=== PATIENT | female | born 1995 | race Caucasian/White ===

== ENCOUNTER 2016-10-25 19:01 | Emergency (ER) | payer MEDICAID ==
--- NOTE | ~2016-10-25 | ER ---
PATIENT'S NAME: TONE MAGANA [facility] AGE: 21 Y [address] ROOM: [place] [address] LOCATION: ED ADMIT DATE: 10/25/2016 ER/Outpatient Report DISCHARGE DATE: 10/25/2016 FAMILY PHYSICIAN: Physician, Unknown ATTENDING PHYSICIAN: Berlin Leary Time of Arrival: 1859 hours. Time of Evaluation: 1859 hours. CHIEF COMPLAINT: Possible seizure. HISTORY OF PRESENT ILLNESS: The patient arrived per [facility] from the senior living. Tonight, she came out of her room stating that she needed help, fell to the ground, and started shaking. She says she hit her head. Witnesses at the senior living state that she did not hit her head. The patient states this is a reaction to the Haldol shots that she gets. She has been in senior living for the past month. She has not had a fever. She was not incontinent of urine or stool. ALLERGIES AND MEDICATIONS: On the chart and reviewed by me. She does get Haldol shot every 3 weeks, and her guardian reports that as a result of those Haldol injections, she does have tremors. They have tried other medicines, and they all cause the same problems. Guardian did call and stated that she is supposed to be on Benadryl daily to try and control some of the side effects of the Haldol, and the guardian will talk with the correction officer supervisor tomorrow regarding that. PAST MEDICAL HISTORY: Bipolar, impulsive control issues. PAST SURGICAL HISTORY: No surgery. REVIEW OF SYSTEMS: All negative other than those mentioned in the HPI. PHYSICAL EXAMINATION: VITAL SIGNS: She weighs 84.8 kg, blood pressure is 137/79, pulse of 105, respirations 16, temperature of 98.6, O2 saturation is 99% on room air. GENERAL: She is awake, alert, and oriented x4. SKIN: Her skin is pink, warm, and dry. RESPIRATIONS: Even and nonlabored. HEENT: Pupils are equal and reactive to light. TMs are pearly white. Nasal is clear. Oropharynx is clear. PATIENT'S NAME: TONE MAGANA [facility] AGE: 21 Y [address] ROOM: [place] [address] LOCATION: [facility] ADMIT DATE: 10/25/2016 ER/Outpatient Report DISCHARGE DATE: 10/25/2016 FAMILY PHYSICIAN: Physician, Unknown ATTENDING PHYSICIAN: Berlin Leary NECK: Supple. No lymphadenopathy. LUNGS: Lung sounds are clear throughout. HEART: Regular rate and rhythm. ABDOMEN: Soft and nondistended. Bowel sounds are present. EXTREMITIES: She moves all extremities. No peripheral edema noted. Positive peripheral pulses. She does have a fine tremor of her lower extremities noted. Able to stop when she thinks no one is watching her. EMERGENCY DEPARTMENT COURSE: The patient was given Benadryl 50 mg p.o. Lab work was drawn. CBC is within normal limits. Chem panel is within normal limits. Prolactin was 59.4. The patient's vital signs remained stable throughout the ER visit. Fine tremor of her legs continued, did not worsen. IMPRESSION: Seizure-like activity. PLAN: The patient is to return to the senior living. Monitor. Follow up as needed. [place] verbalized understanding. JACKELYN MEJIA APRN FOR MD MYNOR LYLE/scottyl /[id number] d: 10/26/16 0320 t: 10/28/16 1813, OUTPATIENT REPORT
[~2016-10-25 19:01] MED LIST changes: -BENADRYL25 MG PO; -HALOPERIDO100 MG/1 M PO; -INVEGA SUS156 MG/1 M IM; -REMERON15 MG PO
[2016-10-25 19:34] LABS: BASOPHIL # 0.1 K/uL (0.0-0.2); BASOPHIL % 0.7 %; EOSINOPHIL # 0.1 K/uL (0.0-0.5); EOSINOPHIL % 0.7 %; HEMATOCRIT 40.6 % (33.0-46.0); HEMOGLOBIN 13.4 g/dL (11.0-15.0); IMMATURE GRANULOCYTE % 0.2 %; LYMPHOCYTE # 2.4 K/uL (0.8-4.0); LYMPHOCYTE % 27.8 %; MCH 28.5 pg (27.0-34.0); MCV 86.4 fl (83.0-98.0); MONOCYTE # 0.5 K/uL (0.0-1.0); MONOCYTE % 5.3 %; MPV 10.3 fl (9.4-12.4); NEUTROPHIL # (ANC) 5.7 K/uL (1.8-7.8); NEUTROPHIL % 65.3 %; NRBC % 0 /100WBC (0-0.00); PLATELET COUNT 250 K/uL (150-450); WBC 8.7 K/uL (4.0-11.0)
[2016-10-25 19:50] LABS: ALBUMIN 4.3 gm/dL (3.5-5.0); ALK PHOS 74 IU/L (33-138); ALT 16 IU/L (12-78); BLOOD UREA NITROGEN 14 mg/dL (6-24); CALCIUM 9.5 mg/dL (8.5-10.5); CHLORIDE 108 mMol/L (96-110); CO2 26 mMol/L (22-32); CREATININE 0.7 mg/dL (0.5-1.1); ESTIMATED GFR (MDRD EQUATION) > 60; SODIUM 141 mMol/L (135-145); TOTAL PROTEIN 8.5 g/dL (6.0-8.4)
[2016-10-25 19:51] LABS: ANION GAP 11.1 (10.0-19.0); AST 12 IU/L (10-40); POTASSIUM 4.1 mMol/L (3.7-5.1); TOTAL BILIRUBIN 0.2 mg/dL (0.0-1.5)
[2016-12-21] MEDS ORDERED: INVEGA SUS156 MG/1 M IM (09:51)
[2016-12-21] MEDS ORDERED: REMERON15 MG PO (09:52)
[2016-12-21] MEDS ORDERED: BENADRYL25 MG PO (09:58)
[2016-12-22] MEDS ORDERED: HALOPERIDO100 MG/1 M PO (11:15)
[2016-12-22] MEDS ORDERED: BENADRYL25 MG PO (11:16)
== END 2016-10-25 20:10 | disposition disaster alternative care site (69) ==
LOC: GMED 19:01
PROVIDERS: Emergency Medicine
DX: R25.1 Tremor, unspecified (principal)

== ENCOUNTER → 2016-10-25 | Outpatient (CLI) | payer MEDICAID ==
[~2016-10-25] MED LIST: BENADRYL25 MG PO; CIPRO500 MG PO; COGENTIN1 MG PO; HALOPERIDO100 MG/1 M IM; HALOPERIDO100 MG/1 M PO; INVEGA SUS156 MG/1 M IM; NAPROSYN500 MG PO; REMERON15 MG PO; ZYRTEC10 MG PO
== END | disposition disaster alternative care site (69) ==
LOC: GAMB 18:43
DX: R25.1 Tremor, unspecified (principal); Z79.899 Other long term (current) drug therapy
CPT/HCPCS: A0425; A0429

== ENCOUNTER → 2016-10-26 | Emergency (ER) | payer MEDICAID ==
[~2016-10-26] MED LIST changes: +BENADRYL25 MG PO; +HALOPERIDO100 MG/1 M PO; +INVEGA SUS156 MG/1 M IM; +REMERON15 MG PO
== END | disposition disaster alternative care site (69) ==
LOC: GAMB 17:16
DX: R25.1 Tremor, unspecified (principal); R46.2 Strange and inexplicable behavior; R40.20 Unspecified coma

== ENCOUNTER 2016-12-17 19:45 | Emergency (ER) | payer MEDICAID ==
--- NOTE | ~2016-12-17 | ER ---
[facility] 21 [facility] [address] ROOM: [place] [address] LOCATION: ED ADMIT DATE: 12/17/2016 ER/Outpatient Report DISCHARGE DATE: 12/17/2016 FAMILY PHYSICIAN: Macy Stout MD ATTENDING PHYSICIAN: Berna Engle Time of Arrival: 1945 hours. Time Seen: 2017 hours. IDENTIFICATION: A 21-year-old female. CHIEF COMPLAINT: Ingestion of medication. HISTORY OF PRESENT ILLNESS: The patient took 15 prednisone tablets of unknown strength at 6:30 p.m. She was upset with some news about her boyfriend going to senior living and possibly half-way, so she took these medication. She is not sure if she was trying to harm herself. She denies any suicidal ideation. She does have a history of depression and she has a history of previous suicide gestures. Currently, she has no physical complaints. She has no nausea or vomiting and no other physical complaints at this time. ALLERGIES: TO CEPHALOSPORINS AND BACTRIM. CURRENT MEDICATIONS: 1. Invega. 2. Benadryl. 3. Anti-depressant. 4. Depo-Provera. MEDICAL PROBLEMS: Bipolar disorder, personality disorder type B, oppositional defiant disorder. PRIOR SURGERIES: Nasal surgery. SOCIAL HISTORY: The patient has a legal guardian, Sola Leach. Tobacco use, denies. Alcohol use, occasionally. Drug use, she said yesterday she used either meth or cocaine. REVIEW OF SYSTEMS: [facility]GE[facility] 21 Y [address] ROOM: [place] [address] LOCATION: ED ADMIT DATE: 12/17/2016 ER/Outpatient Report DISCHARGE DATE: 12/17/2016 FAMILY PHYSICIAN: Macy Stout MD ATTENDING PHYSICIAN: Berna Engle All systems reviewed and negative other than what is noted in the HPI. On the Depo-Provera, she is not having periods. PHYSICAL EXAMINATION: VITAL SIGNS: Height 5 feet 7 inches, weight 97.6 kilograms, blood pressure 145/86, pulse 98, respirations 16, temperature 98.4, sats 96% on room air. GENERAL: A 21-year-old female, in no acute distress. HEENT: Head; normocephalic, atraumatic. Ears; TMs not visualized. Eyes; pupils are equal and reactive to light and accommodation. Extraocular movements intact. Nose, mucosa pink. No lesions. Mouth, no lesions. Pharynx, benign. NECK: Supple. No lymphadenopathy. LUNGS: Clear to auscultation. No rhonchi, wheezes, or rales. HEART: Regular rate and rhythm. No murmur, rub, or gallop. ABDOMEN: Bowel sounds present. Soft, nondistended. No hepatosplenomegaly. No palpable masses. Nontender. SKIN: [place], warm, and dry. No lesions or rashes noted. NEURO: The patient is alert and oriented x4. Cranial nerves 2 through 12 grossly intact. Motor strength 5/5 throughout. Sensation is intact to light touch. EXTREMITIES: No lower extremity edema. LABORATORY DATA AND X-RAYS: Urine drug screen negative. Sodium 139, potassium 4.2, chloride 109, CO2 of 22, BUN 11, creatinine 0.7, blood sugar 91. Liver enzymes normal. Alcohol less than 0.010. Acetaminophen less than 2. Salicylate less than 2.8. HCG less than 1. TSH 1.120. Magnesium 2.2. Hemoglobin 12.4, hematocrit 37.8, platelets 275, white count 11.5, with a normal differential. EKG; normal sinus rhythm at 93 beats per minute, no acute ST elevation or depression, nonspecific T-wave changes noted in lead III. Four-hour acetaminophen level less than 2. [facility] evaluation did not feel that she required inpatient hospitalization, and a safety plan was outlined and she will be released to her guardian. IMPRESSION: Depression with overdose. No suicidal ideation. PLAN: Safety plan and followup per [facility]. The patient and her guardian understand and agree, and all questions have been answered. BERNA ENGLE MD PATIENT'S NAME: TONE MAGANA [facility] AGE: 21 Y [address] ROOM: [place] [address] LOCATION: ED ADMIT DATE: 12/17/2016 ER/Outpatient Report DISCHARGE DATE: 12/17/2016 FAMILY PHYSICIAN: Macy Stout MD ATTENDING PHYSICIAN: Berna Engle/rosa /[id number] d: 12/18/16 0607 t: 12/19/16 0142, OUTPATIENT REPORT
[~2016-12-17 19:45] MED LIST changes: -BENADRYL25 MG PO; -HALOPERIDO100 MG/1 M PO; -INVEGA SUS156 MG/1 M IM; -REMERON15 MG PO
[2016-12-17 20:55] LABS: BASOPHIL # 0.1 K/uL (0.0-0.2); BASOPHIL % 0.5 %; EOSINOPHIL # 0.1 K/uL (0.0-0.5); EOSINOPHIL % 0.4 %; HEMATOCRIT 37.8 % (33.0-46.0); HEMOGLOBIN 12.4 g/dL (11.0-15.0); IMMATURE GRANULOCYTE % 0.2 %; LYMPHOCYTE # 1.3 K/uL (0.8-4.0); MCH 27.9 pg (27.0-34.0); MCHC 32.8 gm/dL (32.0-36.5); MCV 84.9 fl (83.0-98.0); MONOCYTE # 0.3 K/uL (0.0-1.0); MONOCYTE % 2.2 %; MPV 9.6 fl (9.4-12.4); NEUTROPHIL # (ANC) 9.9 K/uL (1.8-7.8); NEUTROPHIL % 85.7 %; NRBC % 0 /100WBC (0-0.00); PLATELET COUNT 275 K/uL (150-450); RBC 4.45 M/uL (3.50-5.00); RDW-CV 12.7 % (11.9-14.6); WBC 11.5 K/uL (4.0-11.0)
[2016-12-17 21:15] LABS: ALBUMIN 4.1 gm/dL (3.5-5.0); ALK PHOS 76 IU/L (33-138); ALT 45 IU/L (12-78); ANION GAP 12.2 (10.0-19.0); AST 18 IU/L (10-40); BLOOD UREA NITROGEN 11 mg/dL (6-24); CALCIUM 9.4 mg/dL (8.5-10.5); CHLORIDE 109 mMol/L (96-110); CO2 22 mMol/L (22-32); CREATININE 0.7 mg/dL (0.5-1.1); ESTIMATED GFR (MDRD EQUATION) > 60; POTASSIUM 4.2 mMol/L (3.7-5.1); SODIUM 139 mMol/L (135-145); TOTAL BILIRUBIN 0.2 mg/dL (0.0-1.5); TOTAL PROTEIN 8.3 g/dL (6.0-8.4)
[2016-12-17 21:18] LABS: MAGNESIUM 2.2 mg/dL (1.8-2.6)
[2016-12-17 21:35] LABS: BARBITURATE NEGATIVE (NEGATIVE); COCAINE NEGATIVE (NEGATIVE); OPIATES NEGATIVE (NEGATIVE)
[2016-12-17 21:37] LABS: AMPHETAMINE NEGATIVE (NEGATIVE)
[2016-12-21] MEDS ORDERED: INVEGA SUS156 MG/1 M IM (09:51)
[2016-12-21] MEDS ORDERED: REMERON15 MG PO (09:52)
[2016-12-21] MEDS ORDERED: BENADRYL25 MG PO (09:58)
[2016-12-22] MEDS ORDERED: HALOPERIDO100 MG/1 M PO (11:15)
[2016-12-22] MEDS ORDERED: BENADRYL25 MG PO (11:16)
== END 2016-12-17 23:00 | disposition disaster alternative care site (69) ==
LOC: GMED 19:45
PROVIDERS: Family Medicine
DX: T38.0X2A Poisoning by glucocorticoids and synthetic analogues, intentional self-harm, initial encounter (principal); F32.9 Major depressive disorder, single episode, unspecified; Z88.1 Allergy status to other antibiotic agents
CPT/HCPCS: G0480